=== PATIENT | female | born 1980 | race Caucasian/White ===

== ENCOUNTER 2016-09-29 19:23 | Emergency (ER) | payer OTHER ==
[~2016-09-29] VITALS: Ht 165.1 cm; Wt 54.7 kg
[~2016-09-29 19:23] MED LIST: BENZ100C70 PO; IBUP-1542 PO; PSEU120T51 PO
[2016-09-29 20:00] VITALS: Ht 165.1 cm; Wt 54.7 kg
--- NOTE | 2016-09-29 22:09 | ERD ---
ER Documentation Chief Complaint Date/Time DATE: 09/29/16 TIME: 22:08 Chief Complaint Weakness since yesterday HPI 35-year-old female presents here in emergency department for complaints of generalized weakness for 3 days. Patient is also complain of sore throat, burning pain,4/10 scale, is worse upon swallowing. Patient denies any fever or chills. Patient has history of heavy menstruation, just finished her menstruation 2 days ago. Patient soaks 8-9 pads per day, has bleeding for 9 days. At this time, patient denies any vaginal bleeding any more. Patient denies taking any medications to help with symptoms. ROS All systems reviewed and are negative except as per history of present illness. Medications Home Meds Active Scripts Ibuprofen* (Motrin*) 600 Mg Tab, 600 MG PO Q6H Y for PAIN AND OR ELEVATED TEMP, #30 TAB Prov:WILLIAMS MESA WARP CLAMPER 09/29/16 Docusate Sodium* (Colace*) 100 Mg Capsule, 100 MG PO TID, #30 CAP Prov:WILLIAMS MESA WARP CLAMPER 09/29/16 Ferrous Sulfate* (Ferrous Sulfate*) 325 Mg Tabec, 325 MG PO BID, #20 TAB Prov:WILLIAMS MESA WARP CLAMPER 09/29/16 Ibuprofen* (Ibuprofen*) 600 Mg Tablet, 600 MG PO Q6, #30 TAB Prov:NANCY GODINEZ PA-C 05/08/15 Benzonatate* (Tessalon Perle*) 100 Mg Capsule, 200 MG PO Q8H Y for COUGH, #30 CAP Prov:NANCY GODINEZ PA-C 05/08/15 Pseudoephedrine Hcl (Sudafed 12 Hour) 120 Mg Tablet.sa, 120 MG PO TID, #30 Prov:NANCY GODINEZ PA-C 05/08/15 Allergies Allergies: Coded Allergies: No Known Allergy (Unverified , 02/06/14) PMhx/Soc Medical and Surgical Hx: pt denies Medical Hx, pt denies Surgical Hx History of Surgery: No Anesthesia Reaction: No Hx Neurological Disorder: No Hx Respiratory Disorders: No Hx Cardiac Disorders: No Hx Psychiatric Problems: No Hx Miscellaneous Medical Probl: No Hx Alcohol Use: No Hx Substance Use: No Hx Tobacco Use: No Smoking Status: Never smoker FmHx Family History: No coronary disease, No diabetes, No other Physical Exam Vitals Vital Signs Date Time Temp Pulse Resp B/P Pulse Ox O2 Delivery O2 Flow Rate FiO2 09/29/16 20:00 98.3 73 18 124/79 98 Physical Exam GENERAL: The patient is well developed and appropriate for usual state of health, in no apparent distress. HEENT: Atraumatic. Ears: Normal tympanic membrane, no erythema or bulging. No ear canal swelling. No ear discharge. Nose: normal nasal turbinates, no erythema or swelling. Normal nasal discharge. Throat: oropharynx erythematous no tonsillar swelling or tonsillar exudates noted. No lymphadenopathy. CHEST: Clear to auscultation bilaterally. There are no rales, wheezes or rhonchi. HEART: Regular rate and rhythm. No murmurs, clicks, rubs or gallops. No S3 or S4. ABDOMEN: Soft, nontender and nondistended. Good bowel sounds. No rebound or guarding. No gross peritonitis. No gross organomegaly or masses. No Hebert sign or McBurney point tenderness. BACK: No midline or flank tenderness. EXTREMITIES: Equal pulses bilaterally. There is no peripheral clubbing, cyanosis or edema. No focal swelling or erythema. Full range of motion. Grossly neurovascularly intact. NEURO: Alert and oriented. Cranial nerves 2-12 intact. Motor strength in all 4 extremities with 5/5 strength. Sensation grossly intact. Normal speech and gait. SKIN: There is no apparent rash or petechia. The skin is warm and dry. HEMATOLOGIC AND LYMPHATIC: There is no evidence of excessive bruising or lymphedema. No gross cervical, axillary, or inguinal lymphadenopathy. Result Diagram: 09/29/16221409/29/162214 Results 24 hrs Laboratory Tests Test 09/29/16 22:15 Alanine Aminotransferase (ALT/SGPT) 15IU/L Albumin 4.3g/dl Albumin/Globulin Ratio 1.26 Alkaline Phosphatase 41IU/L Anion Gap 16 Aspartate Amino Transf (AST/SGOT) 21IU/L Basophils # 0.010^3/ul Basophils % 0.7% Blood Morphology Comment Blood Urea Nitrogen 11mg/dl Calcium Level 9.3mg/dl Carbon Dioxide Level 29mmol/L Chloride Level 103mmol/L Creatinine 0.63mg/dl Direct Bilirubin 0.00mg/dl Eosinophils # 0.310^3/ul Eosinophils % 3.8% Globulin 3.40g/dl Glucose Level 84mg/dl Hematocrit 36.1% Hemoglobin 11.9g/dl Indirect Bilirubin 0.0mg/dl Lymphocytes # 2.810^3/ul Lymphocytes % 42.4% Mean Corpuscular Hemoglobin 26.7pg Mean Corpuscular Hemoglobin Concent 33.0g/dl Mean Corpuscular Volume 81.1fl Mean Platelet Volume 7.4fl Monocytes # 0.510^3/ul Monocytes % 8.0% Neutrophils # 3.010^3/ul Neutrophils % 45.1% Nucleated Red Blood Cells # 0.010^3/ul Nucleated Red Blood Cells % 0.0/100WBC Platelet Count 09237^3/UL Potassium Level 5.1mmol/L Red Blood Count 4.4510^6/ul Red Cell Distribution Width 14.1% Sodium Level 143mmol/L Total Bilirubin 0.0mg/dl Total Protein 7.7g/dl Urine Bacteria MODERATE Urine Bilirubin NEGATIVE Urine Clarity SLIGHTLY CLOUDY Urine Color LT. YELLOW Urine Glucose NEGATIVE% Urine Hemoglobin 3+ Urine Ketones NEGATIVE Urine Leukocyte Esterase TRACE Urine Microscopic RBC 0-2/HPF Urine Microscopic WBC 5-10/HPF Urine Nitrite NEGATIVE Urine Specific [place] 1.025 Urine Squamous Epithelial Cells MANY Urine Total Protein NEGATIVE Urine Urobilinogen 0.2 E.U./dL Urine pH 6.0 White Blood Count 6.710^3/ul Procedures/[facility] Smith decision making: Patient's symptoms of sore throat and weakness in specific at this time, possible viral pharyngitis. No symptoms of peritonsillar abscess, strep throat, mononucleosis, no oral airway obstruction noted. No symptoms of laryngitis, epiglottitis. Patient's weakness nonspecific, has history of heavy menstruation, has mild anemia. Patient is given prescription for ferrous sulfate, Colace, ibuprofen, is advised to follow-up with primary care doctor in 1-2 days for reevaluation of symptoms. Patient was advised to return to emergency department for worsening symptoms Departure Diagnosis: Primary Impression: Viral pharyngitis Additional Impression: Menorrhagia Menorrahagia type: with regular cycle Qualified Code: N92.0 - Menorrhagia with regular cycle Condition: WILLIAMS Burrows NP Sep 29, 2016 22:09
[2016-09-29 22:25] LABS: BASOPHILS % 0.7 % (0.0-2.0); EOSINOPHILS # 0.3 10^3/ul (0.0-0.5); EOSINOPHILS % 3.8 % (0.0-7.0); HEMATOCRIT 36.1 % (37.0-47.0); HEMOGLOBIN 11.9 g/dl (12.0-16.0); LYMPHOCYTES # 2.8 10^3/ul (0.8-2.9); LYMPHOCYTES % 42.4 % (15.0-51.0); MEAN CORPUSCULAR HEMOGLOBIN 26.7 pg (29.0-33.0); MEAN CORPUSCULAR VOLUME 81.1 fl (82.0-101.0); MEAN PLATELET VOLUME 7.4 fl (7.4-10.4); MONOCYTE # 0.5 10^3/ul (0.3-0.9); NEUTROPHILS % 45.1 % (39.0-77.0); PLATELET COUNT 272 10^3/UL (140-440); RED BLOOD COUNT 4.45 10^6/ul (4.20-5.40); RED CELL DISTRIBUTION WIDTH 14.1 % (11.5-14.5); UNCORRECTED WBC 6.7 10^3/ul (4.8-10.8); WHITE BLOOD COUNT 6.7 10^3/ul (4.8-10.8)
[2016-09-29 22:27] LABS: CONDITION 1; LH ANALYZER COMMENTS 1
[2016-09-29 22:43] LABS: ADD UMIC YES; URINE BILIRUBIN (Dip) NEGATIVE (NEGATIVE); URINE BLOOD (Dip) 3+ (NEGATIVE); URINE COLOR LT. YELLOW (YELLOW); URINE GLUCOSE (Dip) NEGATIVE (NEGATIVE); URINE KETONES (Dip) NEGATIVE (NEGATIVE); URINE LEUKOCYTE ESTERASE (Dip) TRACE (NEGATIVE); URINE NITRITE (Dip) NEGATIVE (NEGATIVE); URINE TOTAL PROTEIN (Dip) NEGATIVE (NEGATIVE); URINE UROBILINOGEN (Dip) 0.2 E.U./dL (0.1-1.0)
[2016-09-29 22:55] LABS: BACTERIA,URINE MODERATE; SQUAMOUS EPITHELIAL CELL,UR MANY; URINE RBCS 0-2 /HPF (0)
[2016-09-29 23:11] LABS: ALBUMIN 4.3 g/dl (3.3-4.9); POTASSIUM 5.1 mmol/L (3.5-5.1)
[2016-09-29 23:13] LABS: CREATININE 0.63 mg/dl (0.44-1.00)
[2016-09-29 23:14] LABS: ALBUMIN/GLOBULIN RATIO 1.26; CALCIUM 9.3 mg/dl (8.4-10.2); TOTAL PROTEIN 7.7 g/dl (6.1-8.1)
[2016-09-29] MEDS ORDERED: DOCU-144 PO (23:21)
[2016-09-29] MEDS ORDERED: FER325 PO (23:21)
[2016-09-29] MEDS ORDERED: IBUP-1542 PO (23:21)
[2016-09-30 00:35] VITALS: BP 111/72; PULSE 57; RESP 16; TEMP 98
== END 2016-09-30 00:36 | disposition home or self-care (01) ==
LOC: FTE 19:23
DX: J02.8 Acute pharyngitis due to other specified organisms (principal); B97.89 Other viral agents as the cause of diseases classified elsewhere; N92.0 Excessive and frequent menstruation with regular cycle
CPT/HCPCS: 36415; 80053; 81001; 85025; Z7502; 81003; 99283

== ENCOUNTER 2017-04-23 13:59 | Emergency (ER) | payer OTHER ==
[~2017-04-23] VITALS: Ht 165.1 cm; Wt 56.8 kg
[~2017-04-23 13:59] MED LIST changes: +DOCU-144 PO; +FER325 PO
[2017-04-23 14:03] VITALS: Ht 165.1 cm; Wt 56.8 kg
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
[2017-04-23 14:58] LABS: BASOPHILS % 0.6 % (0.0-2.0); EOSINOPHILS # 0.3 10^3/ul (0.0-0.5); EOSINOPHILS % 4.2 % (0.0-7.0); HEMATOCRIT 36.1 % (37.0-47.0); HEMOGLOBIN 11.6 g/dl (12.0-16.0); LYMPHOCYTES # 2.5 10^3/ul (0.8-2.9); LYMPHOCYTES % 40.5 % (15.0-51.0); MEAN CORPUSCULAR HEMOGLOBIN 26.8 pg (29.0-33.0); MEAN CORPUSCULAR HGB CONC 32.1 g/dl (32.0-37.0); MEAN CORPUSCULAR VOLUME 83.4 fl (82.0-101.0); MEAN PLATELET VOLUME 9.9 fl (7.4-10.4); MONOCYTE # 0.4 10^3/ul (0.3-0.9); MONOCYTES % 6.9 % (0.0-11.0); NEUTROPHILS % 47.5 % (39.0-77.0); PLATELET COUNT 247 10^3/UL (140-415); RED BLOOD COUNT 4.33 10^6/ul (4.20-5.40); RED CELL DISTRIBUTION WIDTH 13.7 % (11.5-14.5); WHITE BLOOD COUNT 6.3 10^3/ul (4.8-10.8)
[2017-04-23 15:16] LABS: ALBUMIN 4.2 g/dl (3.3-4.9); ALBUMIN/GLOBULIN RATIO 1.31; BILIRUBIN,INDIRECT 0.1 mg/dl (0-1.1); BILIRUBIN,TOTAL 0.1 mg/dl (0.2-1.3); CALCIUM 9.4 mg/dl (8.4-10.2); CREATININE 0.7 mg/dl (0.44-1.00); TOTAL PROTEIN 7.4 g/dl (6.1-8.1)
[2017-04-23 15:23] LABS: ADD UMIC YES; UR ASCORBIC ACID NEGATIVE (NEGATIVE); UR BILIRUBIN (Dip) NEGATIVE (NEGATIVE); UR BLOOD (Dip) 3+ mg/dL (NEGATIVE); UR CLARITY CLEAR (CLEAR); UR COLOR YELLOW (YELLOW); UR GLUCOSE (Dip) NEGATIVE (NEGATIVE); UR KETONES (Dip) NEGATIVE (NEGATIVE); UR LEUKOCYTE ESTERASE (Dip) NEGATIVE Leu/ul (NEGATIVE); UR NITRITE (Dip) NEGATIVE (NEGATIVE); UR RBC > 182 /HPF (0-5); UR SPECIFIC GRAVITY (Dip) 1.012 (1.003-1.030); UR TOTAL PROTEIN (Dip) NEGATIVE (NEGATIVE); UR UROBILINOGEN (Dip) NEGATIVE (NEGATIVE)
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
== END 2017-04-23 16:12 | disposition home or self-care (01) ==
LOC: FTE 13:59
DX: N93.8 Other specified abnormal uterine and vaginal bleeding (principal); S39.92XA Unspecified injury of lower back, initial encounter; R10.2 Pelvic and perineal pain; V49.40XA Driver injured in collision with unspecified motor vehicles in traffic accident, initial encounter
CPT/HCPCS: 36415; 71010; 76705; 76830; 76856; 80053; 81001; 85025; Z7502

== ENCOUNTER 2018-12-21 19:52 | Emergency (ER) | payer OTHER ==
[~2018-12-21] VITALS: Wt 59.2 kg
[~2018-12-21 19:52] MED LIST changes: +BENZ-6 PO; -BENZ100C70 PO; +ONDA4TAB14 PO; +PSEU120T12 PO; -PSEU120T51 PO
[2018-12-21] MEDS ORDERED: HYDR-843 PO (20:30)
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
[2018-12-21 20:45] VITALS: BP 111/71; PULSE 65; RESP 18
== END 2018-12-21 21:15 | disposition home or self-care (01) ==
LOC: FTE 19:52
DX: F41.9 Anxiety disorder, unspecified (principal)
CPT/HCPCS: 99283

== ENCOUNTER 2019-01-31 22:01 | Emergency (ER) | payer OTHER ==
[~2019-01-31] VITALS: Ht 165.1 cm; Wt 59.7 kg
[~2019-01-31 22:01] MED LIST changes: +HYDR-843 PO
[2019-01-31 22:09] VITALS: Ht 165.1 cm; Wt 59.7 kg
[2019-01-31] MEDS ORDERED: CETI10CA PO (22:49)
--- NOTE | 2019-01-31 22:50 | ERD ---
ER Documentation Chief Complaint Chief Complaint CP X'S 1 WEEK, RASH ON LEGS X'S 1 WEEK; HX OF ANXIETY HPI 38-year-old female presenting with a rash on her legs for the past 1 week spreading now onto her back. She is complaining of associated pruritus. No associated pain, fevers, chills. The rash is a few bumps all over her body, scattered. No recent changes in detergents, soaps, lotions. She also complains of chest tightness that is on and off for the last 1 year. She associates it with stress. She denies any associated shortness of breath but occasionally has palpitations. She denies any cardiac history or any other medical problems. ROS All systems reviewed and are negative except as per history of present illness. Medications Home Meds Active Scripts Cetirizine Hcl* (Zyrtec*) 10 Mg Capsule, 10 MG PO DAILY, #10 TAB Prov:CARMEN MCKINLEY MD 01/31/19 Hydroxyzine Hcl* (Hydroxyzine Hcl*) 25 Mg Tablet, 25 MG PO QID PRN for AGITATION/ANXIETY, #20 TAB Prov:SB LOPES PA-C 12/21/18 Ondansetron (Ondansetron Odt) 4 Mg Tab.rapdis, 4 MG PO Q6H PRN for NAUSEA AND/OR VOMITING, #15 TAB Prov:THANG OSORIO DO 09/13/18 Ibuprofen* (Motrin*) 600 Mg Tab, 600 MG PO Q6H PRN for PAIN AND OR ELEVATED TEMP, #30 TAB Prov:WILLIAMS MESA NP 09/29/16 Docusate Sodium* (Colace*) 100 Mg Capsule, 100 MG PO TID, #30 CAP Prov:WILLIAMS MESA NP 09/29/16 Ferrous Sulfate* (Ferrous Sulfate*) 325 Mg Tabec, 325 MG PO BID, #20 TAB Prov:WILLIAMS MESA NP 09/29/16 Ibuprofen* (Ibuprofen*) 600 Mg Tablet, 600 MG PO Q6, #30 TAB Prov:NANCY GODINEZ PA-C 05/08/15 Benzonatate* (Tessalon Perle*) 100 Mg Capsule, 200 MG PO Q8H PRN for COUGH, #30 CAP Prov:NANCY GODINEZ PA-C 05/08/15 Pseudoephedrine Hcl (Sudafed 12 Hour) 120 Mg Tablet.sa, 120 MG PO TID, #30 Prov:NANCY GODINEZ PA-C 05/08/15 Allergies Allergies: Coded Allergies: No Known Allergy (Unverified , 02/06/14) PMhx/Soc Medical and Surgical Hx: pt denies Surgical Hx History of Surgery: No Anesthesia Reaction: No Hx Neurological Disorder: No Hx Respiratory Disorders: No Hx Cardiac Disorders: No Hx Psychiatric Problems: Yes (Anxiety) Hx Miscellaneous Medical Probl: No Hx Alcohol Use: No Hx Substance Use: No Hx Tobacco Use: No FmHx Family History: No coronary disease Physical Exam Vitals Vital Signs Date Temp Pulse Resp B/P (MAP) Pulse Ox O2 O2 Flow FiO2 Time Delivery Rate 01/31/19 98.4 63 18 112/74 99 22:09 (87) Physical Exam const: No acute distress Head: Atraumatic Eyes: Normal Conjunctiva ENT: Normal External Ears, Nose and Mouth. Neck: Full range of motion. No meningismus. Resp: Clear to auscultation bilaterally Cardio: Regular rate and rhythm, no murmurs Abd: Soft, non tender, non distended. Normal bowel sounds Skin: No petechiae or purpura. Few papules on legs and back. Back: No midline or flank tenderness Ext: No cyanosis, or edema Neur: Awake and alert Psych: Normal Mood and Affect Results 24 hrs Current Medications Medications Dose Sig/Bijal Start Time Status Last (Trade) Ordered Route PRN Stop Time Admin Dose Reason Admin Hydroxyzine 10 mg ONCE ONCE 01/31/19 DC 01/31/19 HCl PO 23:00 23:06 (Atarax) 01/31/19 23:01 Procedures/MDM EKG: Rate/Rhythm: Normal Sinus Rhythm QRS, ST, T-waves: No changes consistent w/ acute ischemia Impression: No evidence of ischemia or arrhythmia Patient is presenting with a rash, but is well appearing and afebrile. I do not suspect Rodríguez-Ehsan Syndrome, toxic epidermal necrolysis, infection, SSSS, or meningococcemia. The rash is most consistent with contact dermatitis versus allergic dermatitis. The patient will be discharged with a prescription for Zyrtec. If symptoms worsen, I instructed the patient to stop the prescribed medication and return to the ED or see their primary care physician. If the rash is not improving, Dermatology referral may be needed and may be arranged by their PCP. With regard to her chest tightness, I feel that this is most likely his symptoms of anxiety and stress. I advised she speak with her primary care doctor regarding this as it has been going on for 1 year. I do not suspect that she is having a cardiac problem or pulmonary emergency. Patient is agreeable with this discharge plan. Departure Diagnosis: Primary Impression: Feeling of chest tightness Additional Impressions: Anxiety Rash Condition: Stable Patient Instructions: Your Body's Response to Anxiety, Self-Care for Skin Rashes CARMEN MCKINLYE MD Jan 31, 2019 22:50
[2019-01-31 23:00] VITALS: BP 107/63; PULSE 61; RESP 16
[2019-01-31] MEDS ORDERED: hydrOXYzine HCL 10 MG TAB PO ONE (23:00)
== END 2019-01-31 23:00 | disposition home or self-care (01) ==
LOC: E/R 22:01
DX: F41.9 Anxiety disorder, unspecified (principal); R07.89 Other chest pain; R21 Rash and other nonspecific skin eruption
CPT/HCPCS: 93005; Z7502; Z7610